=== PATIENT | female | born 1985 | race Hispanic/Latino ===

== ENCOUNTER 2020-03-29 09:52 | Emergency (ER) | payer SELFPAY ==
[2020-03-29] MEDS ORDERED: NA CHLORIDE 0.9% 1,000 ML ONE (11:38)
[2020-03-29] MEDS ORDERED: MORPHINE 2 MG/ML SYR ONE (11:38)
[2020-03-29] MEDS ORDERED: ONDANSETRON 4 MG/2 ML VIAL ONE (11:38)
[2020-03-29 11:51] LABS: Absolute Lymphocytes (CBC) 1.6 K/uL (0.7-4.9); Basophils % 0.4 % (0-1.3); Hematocrit 45.2 % (36.0-45.0); Lymphocytes % 14.7 % (15.3-44.8); MPV 10.4 fL (7.6-11.3); RBC Red Blood Cell Count 5.18 M/uL (3.86-4.86)
[2020-03-29 12:08] LABS: Albumin 3.8 g/dL (3.4-5.0); Bilirubin Direct 0.2 mg/dL (0-0.2); Bilirubin Total 1.2 mg/dL (0.2-1.0)
[2020-03-29 12:29] LABS: Urine Bacteria LOADED /HPF (<20); Urine Mucus 2+ /HPF (NONE SEEN); Urine RBC 20-50 /HPF (NONE SEEN)
--- NOTE | 2020-03-29 12:37 | ER ---
Nurse's Notes [facility] Name: Yuliana Urias Age: 34 yrs Sex: Female : 1985 Arrival Date: 03/29/2020 Time: 09:54 Bed 23 Private MD: Diagnosis: Urinary tract infection, site not specified;Elevated blood glucose level;Abnormal results of liver function studies Presentation: 03/29 09:59 Method Of Arrival: Ambulatory ss 10:02 Chief complaint: Patient states: Pelvic pain, burning with urination and blood in urine ss that began 2 days ago. Coronavirus screen: Client denies travel out of the [place] in the last 14 days. Ebola Screen: Patient denies exposure to infectious person. Patient denies travel to an Ebola-affected area in the 21 days before illness onset. Initial Sepsis Screen: Does the patient meet any 2 criteria? No. Patient's initial sepsis screen is negative. Does the patient have a suspected source of infection? Yes: Dysuria/Frequency/Urgency/UTI. Risk Assessment: Do you want to hurt yourself or someone else? Patient reports no desire to harm self or others. Onset of symptoms was March 27, 2020. 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 - Social history:: Smoking status: Patient denies any tobacco usage or history of. Screenin:59 Abuse screen: Denies threats or abuse. Denies injuries from another. Nutritional ss screening: No deficits noted. Tuberculosis screening: Never had TB. Fall Risk None identified. Assessment: 09:58 Reassessment: Patient has been called to triage. No answer. Registration staff states ss that patient is in restroom in ED lobby. 10:06 General: Appears in no apparent distress. comfortable, Behavior is calm, cooperative. ss Pain: Complains of pain in pelvic area/ suprapubic area Pain currently is 10 out of 10 on a pain scale. Quality of pain is described as pressure, Pain began 2-3 days ago. Is continuous. Neuro: Level of Consciousness is awake, alert, obeys commands, Oriented to person, place, time, situation. Respiratory: Airway is patent Respiratory effort is even, unlabored, Respiratory pattern is regular, symmetrical. GI: Abdomen is non-distended, Reports nausea, Patient currently denies diarrhea, vomiting. : Reports burning with urination, urgency, urinary frequency. EENT: Oral mucosa is moist. Derm: Skin is intact, is healthy with good turgor, Skin is dry, Skin is pink, warm \T\ dry. normal. Musculoskeletal: Circulation, motion, and sensation intact. Range of motion: intact in all extremities. 11:32 Reassessment: Patient appears in no apparent distress at this time. No changes from jd3 previously documented assessment. Patient and/or family updated on plan of care and expected duration. Pain level reassessed. Patient is alert, oriented x 3, equal unlabored respirations, skin warm/dry/pink. 13:33 Reassessment: Patient is alert, oriented x 3, equal unlabored respirations, skin iw warm/dry/pink. Vital Signs: 10:02 BP 116 / 73; Pulse 92; Resp 16; Temp 98.9(TE); Pulse Ox 99% on R/A; Weight 76.2 kg; ss Height 5 ft. 4 in. (162.56 cm); Pain 10/10; 10:02 Body Mass Index 28.84 (76.20 kg, 162.56 cm) ED Course: 09:54 Patient arrived in ED. rg4 10:02 Arm band placed on right wrist. ss 10:05 Triage completed. ss 10:06 Patient has correct armband on for positive identification. Bed in low position. Call light in reach. 10:29 Axel Jamison PA is PHCP. cp 10:29 Axel Ellis MD is Attending Physician. cp 10:57 CT Stone Protocol In Process Unspecified. EDMS 11:13 Chandra Ya, GAYE is Primary Nurse. jd3 11:20 Inserted saline lock: 20 gauge in right antecubital area, using aseptic technique. kj1 Blood collected. 13:00 US Abdomen Limited In Process Unspecified. EDMS 13:15 Imtiaz Salazar MD is Referral Physician. cp 13:33 No provider procedures requiring assistance completed. IV discontinued, intact, iw bleeding controlled, No redness/swelling at site. Pressure dressing applied. Administered Medications: 11:31 Drug: NS 0.9% 1000 ml Route: IV; Rate: 1 bolus; Site: right antecubital; jd3 11:31 Drug: morphine 2 mg Route: IVP; Site: right antecubital; jd3 11:31 Drug: Zofran (Ondansetron) 4 mg Route: IVP; Site: right antecubital; jd3 13:25 Drug: Rocephin 1 grams Route: IV; Rate: calculated rate; Site: right antecubital; iw Outcome: 12:37 Discharge ordered by MD. cp 13:16 Discharge ordered by MD. cp 13:33 Discharged to home ambulatory. iw 13:33 Condition: stable 13:33 Discharge instructions given to patient, Instructed on discharge instructions, follow up and referral plans. medication usage, Demonstrated understanding of instructions, follow-up care, medications, Prescriptions given X 3. 13:33 Patient left the ED. iw Addendum: 04/01/2020 07:13 Addendum: Culture Results: Positive urine culture. No further action required. Bacteria e b sensitive to prescribed antibiotic. Signatures: Dispatcher [employer] EDLibra Scales RN RN iw Lizette Alvarenga RN RN ss Page, Corey, PA PA cp Garcia, Rubi rg4 Chandra Ya RN RN jCheyenne Martines Kandis kj1 Corrections: (The following items were deleted from the chart) 03/29 10:08 10:06 Pain: Complains of pain in pelvic area/ suprapubic area Pain currently is 10 out ss of 10 on a pain scale. Quality of pain is described as pressure, Pain began 2-3 days ago. Is continuous, ss 10:08 10:06 GI: Abdomen is non-distended, Patient currently denies diarrhea, nausea, ss vomiting, ss
--- NOTE | 2020-03-29 12:38 | EDPHYS ---
Physician Documentation [facility] Name: Yuliana Urias Age: 34 yrs Sex: Female : 1985 Arrival Date: 03/29/2020 Time: 09:54 Bed 23 Private MD: EARNEST Physician Axel Ellis HPI: 03/29 10:45 This 34 yrs old Female presents to ER via Ambulatory with complaints of Pelvic cp Pain, Pain With Urination, Blood In Urine. 10:45 The patient presents with pelvic pain, urinary symptoms, dysuria, hematuria. Onset: The cp symptoms/episode began/occurred 2 day(s) ago. Associated signs and symptoms: Pertinent negatives: diarrhea, fever, vaginal bleeding, vaginal discharge, vomiting. Severity of symptoms: in the emergency department the symptoms are unchanged, despite home interventions. 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 - Social history:: Smoking status: Patient denies any tobacco usage or history of. ROS: 10:50 Constitutional: Negative for body aches, chills, fever, poor PO intake. cp 10:50 Eyes: Negative for injury, pain, redness, and discharge. cp 10:50 ENT: Negative for ear pain, sore throat, difficulty swallowing, difficulty handling secretions. 10:50 Cardiovascular: Negative for chest pain, palpitations. 10:50 Respiratory: Negative for cough, shortness of breath, wheezing. 10:50 Abdomen/GI: Positive for abdominal pain, nausea, Negative for vomiting, diarrhea, constipation, anorexia. 10:50 Back: Positive for pain at rest, pain with movement, of the low back area, Negative for injury or acute deformity, decreased range of motion. 10:50 : Positive for urinary symptoms, Negative for vaginal bleeding, vaginal discharge. 10:50 Skin: Negative for rash. 10:50 Neuro: Negative for altered mental status, headache, weakness. 10:50 All other systems are negative. Exam: 11:00 Constitutional: The patient appears in no acute distress, alert, awake, non-toxic, well cp developed, well nourished. 11:00 Head/Face: Normocephalic, atraumatic. cp 11:00 Eyes: Periorbital structures: appear normal, Conjunctiva: normal, no exudate, no injection, Sclera: no appreciated abnormality, Lids and lashes: appear normal, bilaterally. 11:00 ENT: External ear(s): are unremarkable, Nose: is normal, Mouth: Lips: moist, Oral mucosa: moist, Posterior pharynx: Airway: no evidence of obstruction, patent. 11:00 Chest/axilla: Inspection: normal. 11:00 Cardiovascular: Rate: normal, Rhythm: regular. 11:00 Respiratory: the patient does not display signs of respiratory distress, Respirations: normal, no use of accessory muscles, no retractions, labored breathing, is not present, Breath sounds: are clear throughout, no decreased breath sounds, no stridor, no wheezing. 11:00 Abdomen/GI: Inspection: abdomen appears normal, Bowel sounds: active, all quadrants, cp Palpation: soft, in all quadrants, severe abdominal tenderness, in the right lower quadrant and left lower quadrant, rebound tenderness, is not appreciated, voluntary guarding, is elicited in the right lower quadrant and left lower quadrant. 11:00 Back: pain, that is moderate, of the low back area, ROM is painful, with all movement. cp 11:00 Skin: no rash present. 11:00 Neuro: Orientation: to person, place \T\ time. Mentation: is normal, Cerebellar function: is grossly normal, Motor: moves all fours, strength is normal, Sensation: is normal. Vital Signs: 10:02 BP 116 / 73; Pulse 92; Resp 16; Temp 98.9(TE); Pulse Ox 99% on R/A; Weight 76.2 kg; ss Height 5 ft. 4 in. (162.56 cm); Pain 10/10; 10:02 Body Mass Index 28.84 (76.20 kg, 162.56 cm) ss MDM: 10:30 Patient medically screened. bairon 11:00 Differential diagnosis: UTI, sepsis, kidney stone, PID. cp 13:15 Data reviewed: vital signs, nurses notes, lab test result(s), radiologic studies, CT cp scan. 03/29 10:14 Order name: Urine Culture iw 03/29 10:14 Order name: Urine Culture EDAL 03/29 10:30 Order name: Urine Microscopic Only 03/29 10:31 Order name: Urine Microscopic Only; Complete Time: 12:40 [facility] 03/29 12:40 Interpretation: Normal except: UWBC >50; URBC 20-50; UBACT LOADED; SQEPI 5-10. 03/29 10:38 Order name: Basic Metabolic Panel; Complete Time: 12:14 03/29 12:14 Interpretation: Normal except: GLUC 250; GFR 83. 03/29 10:38 Order name: CBC with Diff; Complete Time: 12:14 03/29 12:14 Interpretation: Normal except: RBC 5.18; HGB 15.2; HCT 45.2; DAMIEN% 77.7; LYM% 14.7; NEUT cp A 8.5. 03/29 10:38 Order name: Hepatic Function; Complete Time: 12:14 03/29 12:15 Interpretation: Normal except: AST 67; ALT 169; ALK 147; BILIT 1.2; GLOB 4.2; A/G 0.9. 03/29 10:38 Order name: Lipase; Complete Time: 12:14 03/29 12:15 Interpretation: LIP 89; Reviewed. 03/29 10:38 Order name: CT Stone Protocol 03/29 12:17 Order name: US Abdomen Limited 03/29 12:56 Order name: Urine Dipstick--Ancillary (enter results) 03/29 10:30 Order name: Urine Dipstick-Ancillary (obtain specimen); Complete Time: 10:35 03/29 10:38 Order name: IV Saline Lock; Complete Time: 11:31 03/29 10:38 Order name: Labs collected and sent; Complete Time: 11:31 cp Administered Medications: 11:31 Drug: NS 0.9% 1000 ml Route: IV; Rate: 1 bolus; Site: right antecubital; jd3 11:31 Drug: morphine 2 mg Route: IVP; Site: right antecubital; jd3 11:31 Drug: Zofran (Ondansetron) 4 mg Route: IVP; Site: right antecubital; jd3 13:25 Drug: Rocephin 1 grams Route: IV; Rate: calculated rate; Site: right antecubital; iw Disposition: 03/29/20 13:16 Discharged to Home. Impression: Urinary tract infection, site not specified, Elevated blood glucose level, Abnormal results of liver function studies. - Condition is Stable. - Discharge Instructions: Urinary Tract Infection, Adult, Blood Glucose Monitoring, Adult. - Prescriptions for Pyridium 200 mg Oral Tablet - take 1 tablet by ORAL route every 8 hours for 2 days; 6 tablet. Zofran 4 mg Oral Tablet - take 1 tablet by ORAL route every 12 hours As needed; 20 tablet. Bactrim DS 800- 160 mg Oral Tablet - take 1 tablet by ORAL route every 12 hours for 10 days; 20 tablet. - Medication Reconciliation Form, Thank You Letter, Antibiotic Education, Prescription Opioid Use form. - Follow up: Private Physician; When: 1 - 2 days; Reason: Recheck today's complaints. Follow up: Imtiaz Salazar MD; When: 1 - 2 days; Reason: elevated liver enzymes. - Problem is new. - Symptoms have improved. Addendum: 03/31/2020 06:55 Co-signature as Attending Physician, Axel Ellis MD I agree with the assessment and c rodrigez plan of care. Signatures: Dispatcher [employer] EDAxel Nugent MD MD cha Williams, Irene, RN RN iw Smirch, Shelby, RN RN ss Page, Corey, PA PA cp Davies, Jonathon, RN RN jd3 Corrections: (The following items were deleted from the chart) 03/29 12:40 12:37 03/29/2020 12:37 Discharged to Home. Impression: Urinary tract infection, site cp not specified. Condition is Stable. Forms are Medication Reconciliation Form, Thank You Letter, Antibiotic Education, Prescription Opioid Use. Follow up: Private Physician; When: 1 - 2 days; Reason: Worsening of condition. Problem is new. Symptoms have improved. cp 13:33 13:16 03/29/2020 13:16 Discharged to Home. Impression: Urinary tract infection, site iw not specified; Elevated blood glucose level; Abnormal results of liver function studies. Condition is Stable. Prescriptions for Pyridium 200 mg Oral Tablet - take 1 tablet by ORAL route every 8 hours for 3 days; 9 tablet, Zofran 4 mg Oral Tablet - take 1 tablet by ORAL route every 12 hours As needed; 20 tablet, Bactrim DS 800-160 mg Oral Tablet - take 1 tablet by ORAL route every 12 hours for 10 days; 20 tablet. and Forms are Medication Reconciliation Form, Thank You Letter, Antibiotic Education, Prescription Opioid Use. Follow up: Private Physician; When: 1 - 2 days; Reason: Recheck today's complaints. Follow up: Imtiaz Salazar; When: 1 - 2 days; Reason: elevated liver enzymes. Problem is new. Symptoms have improved. cp
[2020-03-29] MEDS ORDERED: CEFTRIAXONE/SWI 1gm 1 GM/10 ML SYR ONE (13:34)
[2020-03-29 13:38] VITALS: BP 116/73; TEMP 98.9; O2SAT 99
[2020-03-29 14:07] LABS: Urine Blood 3+ (NEG); Urine Glucose TRACE (NEG); Urine Protein 3+ (NEG); Urine Specific Gravity >1.030 (1.005-1.030)
--- NOTE | 2020-03-29 15:45 | RAD REPORT ---
EXAM DESCRIPTION: US - Abdomen Exam Limited - 03/29/2020 2:56 pm CLINICAL HISTORY: Elevated liver function test enzymes COMPARISON: March 29, 2020 cat scan FINDINGS: Liver has an increased echotexture. The liver is enlarged. Hepatopetal flow. Cholecystectomy. Spleen measures 14 centimeters IMPRESSION: Hepatomegaly Increased hepatic echotexture probably fatty infiltration Mild splenomegaly
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
== END 2020-03-29 13:33 | disposition home or self-care (01) ==
LOC: ER 09:52
DX: N39.0 Urinary tract infection, site not specified (principal); R94.5 Abnormal results of liver function studies; R73.9 Hyperglycemia, unspecified; K21.9 Gastro-esophageal reflux disease without esophagitis
CPT/HCPCS: 36415; 74176; 76377; 76705; 80048; 80076; 81003; 81015; 83690; 85025; 87077; 87086; 87088; 87186; 96374; 96375; 99284; J0696; J2270; J2405; J7030